=== PATIENT | female | born 1995 | race Caucasian/White ===

== ENCOUNTER 2017-01-09 08:41 | Emergency (ER) | payer SELFPAY ==
[~2017-01-09] VITALS: Ht 154.9 cm; Wt 55.3 kg
[~2017-01-09 08:41] MED LIST: IBUP-44 PO
[2017-01-09 08:52] VITALS: BP 121/51
--- NOTE | 2017-01-09 09:05 | NUR ---
PATIENT PRESENTS TO ED WITH C/O PAINFUL URINATION X3DAYS WITH NAUSEA. HX OF SECTION . PT STATES SHE HAS FLANK PAIN TOO;SKIN IS PINK/WARM/DRY; AAOX4 WITH EVEN AND STEADY GAIT; LUNGS CLEAR BL; HR EVEN AND REGULAR; PT DENIES ANY FEVER, CP, SOB, OR COUGH AT THIS TIME; PATIENT STATES PAIN OF 10/10 AT THIS TIME;PATIENT POSITIONED FOR COMFORT; HOB ELEVATED; BEDRAILS UP X2; BED DOWN. ER MD MADE AWARE OF PT STATUS.
[2017-01-09] MEDS ORDERED: KETOROLAC 60 MG/2 ML VIAL IM ONE (09:40)
[2017-01-09] MEDS ORDERED: ONDANSETRON 4 MG ODT PO ONE (09:40)
[2017-01-09 09:56] LABS: APPEARANCE,URINE CLEAR (CLEAR); BILIRUBIN,URINE NEGATIVE (NEGATIVE); BLOOD, URINE NEGATIVE (NEGATIVE); COLOR,URINE YELLOW (YELLOW); LEUKOCYTE ESTERASE ,URINE NEGATIVE (NEGATIVE); NITRITE, URINE NEGATIVE (NEGATIVE); UGLUCOSE NEGATIVE (NEGATIVE)
--- NOTE | 2017-01-09 10:17 | NUR ---
PT REFUSED BLOOD TO BE DRAWN;LENORE HEATON NOTIFIED;
[2017-01-09 10:28] LABS: RBC,URINE 0-5 (RARE) /HPF (0-5)
[2017-01-09 10:29] LABS: WBC,URINE 6-15 (FEW) /HPF (0-5)
--- NOTE | 2017-01-09 10:40 | NUR ---
Patient discharged with v/s stable. Written and verbal after care instructions given and explained. Patient alert, oriented and verbalized understanding of instructions. Ambulatory with steady gait. All questions addressed prior to discharge. ID band removed. Patient advised to follow up with PMD. Rx of ZOFRANA ND CIPROFLOXACIN given. Patient educated on indication of medication including possible reaction and side effects. Opportunity to ask questions provided and answered.
[2017-01-09 10:41] VITALS: BP 128/67
== END 2017-01-09 10:40 | disposition home or self-care (01) ==
LOC: MED 08:41
DX: Z88.1 Allergy status to other antibiotic agents (principal); N39.0 Urinary tract infection, site not specified; F17.200 Nicotine dependence, unspecified, uncomplicated
CPT/HCPCS: 81001; 81025; 87086; 96372; 99284; J1885; S0119

== ENCOUNTER 2017-12-29 09:43 | Emergency (ER) | payer MEDICAID ==
[~2017-12-29] VITALS: Ht 154.9 cm; Wt 52.2 kg
--- NOTE | 2017-12-29 09:57 | NUR ---
PT AMBULATES TO BED 4
[2017-12-29 09:59] VITALS: BP 116/78
--- NOTE | 2017-12-29 10:05 | NUR ---
PT. CAME INTO THE ED DUE TO DYSURIA X 3 DAYS WITH FREQUENCY. PT. STATES " I STARTED HAVING A BURNING SENSATION WHEN I PEE FOR ABOUT 3 DAYS ALREADY AND I HAVE TO GO MORE TIMES THAN BEFORE". DENIES FEVERS , DENIES N/V/D. RR EVEN AND UNLABORED. ER MD NOTIFIED. WILL CONTINUE TO MONITOR. SAFETY PRECAUTIONS IMPLEMENTED.
[2017-12-29 10:57] VITALS: BP 120/72
--- NOTE | 2017-12-29 10:57 | NUR ---
Patient discharged with v/s stable. Written and verbal after care instructions given and explained. Patient verbalized understanding. Ambulatory with steady gait. All questions addressed prior to discharge. Advised to follow up with PMD.
== END 2017-12-29 10:57 | disposition home or self-care (01) ==
LOC: MED 09:43
DX: R10.30 Lower abdominal pain, unspecified (principal); R10.13 Epigastric pain
CPT/HCPCS: 81002; 81025; 99282